=== PATIENT | female | born 1965 | race Caucasian/White ===

== ENCOUNTER → 2025-02-10 10:10 | Outpatient (BNVA) | payer BC, SELFPAY | PROVIDERS: Family Provider Family Medicine; PCP Family Medicine; Referring Provider Nurse Practitioner Family; Visit Provider Internal Medicine Rheumatology | DX: M81.0 Age-related osteoporosis without current pathological fracture (principal); M25.542 Pain in joints of left hand; M25.541 Pain in joints of right hand; M25.572 Pain in left ankle and joints of left foot; M25.571 Pain in right ankle and joints of right foot; M54.59 Other low back pain | CPT/HCPCS: 36415; 80076; 82306; 82565; 85025; 85651; 86140; 86200; 86480; 86812 ==